=== PATIENT | female | born 1980 | race Caucasian/White ===

== ENCOUNTER → 2017-03-30 | Outpatient (CLI) | payer OTHER ==
[~2017-03-30] VITALS: Ht 152.4 cm; Wt 66.7 kg
[~2017-03-30] MED LIST: IBUP-1027 PO
[2017-03-30 13:08] VITALS: BP 108/65
--- NOTE | 2017-03-30 14:34 | RAD ---
Indication: Left breast mass. Patient present for ultrasound-guided biopsy. Correlation is made with outside ultrasound of the left breast performed on 02/20/2017. The patient was brought to the ultrasound suite and placed on the bed in the supine position. Ultrasound imaging over the left breast was performed to evaluate appropriate entry site. Left breast was then prepped and draped in the usual sterile fashion. A small amount of 1% lidocaine was utilized for local anesthesia. A 14-gauge Bard needle was used and placed with its tip adjacent to the angular hypoechoic mass noted at the 4:30 location of the left breast. A total of 3 core biopsies were obtained. Marker clip was then deployed. Hemostasis was obtained using manual compression. The patient tolerated the procedure well. Follow-up mammogram demonstrates the clip in the lower slightly outer left breast. Pathology results are currently pending. Impression: Successful ultrasound-guided core biopsy of the hypoechoic mass at the 4:30 location of the left breast.
--- NOTE | 2017-03-31 09:34 | RAD ---
Indication: Left breast mass. Patient present for ultrasound-guided biopsy. Correlation is made with outside ultrasound of the left breast performed on 02/20. The patient was brought to the ultrasound suite and placed on the bed in the supine position. Ultrasound imaging over the left breast was performed to evaluate appropriate entry site. Left breast was then prepped and draped in the usual sterile fashion. A small amount of 1% lidocaine was utilized for local anesthesia. A 14-gauge Bard needle was used and placed with its tip adjacent to the angular hypoechoic mass noted at the 4:30 location of the left breast. A total of 3 core biopsies were obtained. Marker clip was then deployed. Hemostasis was obtained using manual compression. The patient tolerated the procedure well. Follow-up mammogram demonstrates the clip in the lower slightly outer left breast. Pathology results are currently pending. Impression: Successful ultrasound-guided core biopsy of the hypoechoic mass at the 4:30 location of the left breast. MTDD
== END | disposition home or self-care (01) ==
LOC: EDUNIT# 13:00 → US 14:33
PROVIDERS: ATTEND Surgery
DX: N63 Unspecified lump in breast (principal)
CPT/HCPCS: 76942; C1713; G0206; 77065